=== PATIENT | male | born 2000 | race African-American/Black ===

== ENCOUNTER 2022-05-05 18:04 | Emergency (ER) | payer OTHER ==
[~2022-05-05] VITALS: Ht 162.6 cm; Wt 60.0 kg
[2022-05-05 20:00] VITALS: BP 106/56; TEMP 98.3
== END 2022-05-05 20:00 | disposition home or self-care (01) ==
LOC: ED 18:04
PROC: 0HQGXZZ Repair Left Hand Skin, External Approach (ICD-10-PCS; principal; 2022-05-05)
DX: S61.211A Laceration without foreign body of left index finger without damage to nail, initial encounter (principal); S61.412A Laceration without foreign body of left hand, initial encounter; W26.0XXA Contact with knife, initial encounter; Y92.89 Other specified places as the place of occurrence of the external cause
CPT/HCPCS: 90471; 90715; 99283